=== PATIENT | male | born 1940 | race Caucasian/White ===

== ENCOUNTER → 2016-11-07 | Outpatient (CLI) | payer MEDICARE, OTHER ==
[2016-11-07 12:27] LABS: HEMATOCRIT 38.8 % (37.9-51.0); HGB HCT DIFFERENCE 0.2; MEAN CORPUSCULAR HEMOGLOBIN 28.8 pg (27.0-33.4); MEAN CORPUSCULAR HGB CONC 33.5 g/dL (32.0-36.0); MEAN CORPUSCULAR VOLUME 86 fl (80-97); RED BLOOD COUNT 4.52 10^6/uL (4.35-5.55); RED CELL DISTRIBUTION WIDTH 14.4 % (11.5-14.0); WHITE BLOOD COUNT 10.6 10^3/uL (4.0-10.5)
[2016-11-07 12:54] LABS: ANION GAP 16 (5-19); BLOOD UREA NITROGEN 57 mg/dL (7-20); CALCIUM 10.1 mg/dL (8.4-10.2); CARBON DIOXIDE 23 mmol/L (22-30); CHLORIDE 104 mmol/L (98-107); CREATININE RESULT 1.89 mg/dL (0.52-1.25); GLUCOSE 92 mg/dL (75-110); POTASSIUM 3.7 mmol/L (3.6-5.0); SODIUM 143.3 mmol/L (137-145)
[2016-11-07 16:01] LABS: AMORPHOUS SEDIMENT,URINE TRACE /HPF; APPEARANCE,URINE SLIGHTLY-CLOUDY; BILIRUBIN,URINE NEGATIVE (NEGATIVE); GLUCOSE, URINE NEGATIVE (NEGATIVE); KETONES,URINE NEGATIVE (NEGATIVE); LEUKOCYTE ESTERASE,URINE LARGE (NEGATIVE); NITRITE,URINE NEGATIVE (NEGATIVE); PROTEIN,URINE NEGATIVE (NEGATIVE); URINE SPECIFIC GRAVITY 1.016; UROBILINOGEN,URINE NEGATIVE mg/dL (<2.0)
== END ==
LOC: OD 10:46
PROVIDERS: ATTEND Internal Medicine Nephrology
DX: I12.9 Hypertensive chronic kidney disease with stage 1 through stage 4 chronic kidney disease, or unspecified chronic kidney disease (principal); N18.3 Chronic kidney disease, stage 3 (moderate); N39.0 Urinary tract infection, site not specified; E87.5 Hyperkalemia
CPT/HCPCS: 36415; 80048; 81001; 85027; 87086; 87088; 87186

== ENCOUNTER → 2017-03-27 | Outpatient (CLI) | payer MEDICARE, OTHER ==
[2017-03-27 11:56] LABS: HEMOGLOBIN 12.1 g/dL (13.5-17.0); HGB HCT DIFFERENCE 0.3; MEAN CORPUSCULAR HEMOGLOBIN 28.9 pg (27.0-33.4); MEAN CORPUSCULAR HGB CONC 33.5 g/dL (32.0-36.0); MEAN CORPUSCULAR VOLUME 86 fl (80-97); RED BLOOD COUNT 4.18 10^6/uL (4.35-5.55); RED CELL DISTRIBUTION WIDTH 14.1 % (11.5-14.0); WHITE BLOOD COUNT 9.3 10^3/uL (4.0-10.5)
[2017-03-27 12:12] LABS: APPEARANCE,URINE CLOUDY; BILIRUBIN,URINE NEGATIVE (NEGATIVE); GLUCOSE, URINE NEGATIVE (NEGATIVE); KETONES,URINE NEGATIVE (NEGATIVE); LEUKOCYTE ESTERASE,URINE LARGE (NEGATIVE); NITRITE,URINE NEGATIVE (NEGATIVE); PROTEIN,URINE 100 mg/dL (NEGATIVE); URINE SPECIFIC GRAVITY 1.015; UROBILINOGEN,URINE NEGATIVE mg/dL (<2.0)
[2017-03-27 12:18] LABS: ANION GAP 13 (5-19); BLOOD UREA NITROGEN 30 mg/dL (7-20); CALCIUM 9.2 mg/dL (8.4-10.2); CARBON DIOXIDE 24 mmol/L (22-30); CHLORIDE 104 mmol/L (98-107); CREATININE RESULT 1.63 mg/dL (0.52-1.25); GLUCOSE 93 mg/dL (75-110); MAGNESIUM 1.9 mg/dL (1.6-2.3); SODIUM 140.5 mmol/L (137-145)
== END ==
LOC: OD 11:05
PROVIDERS: ATTEND Internal Medicine Nephrology
DX: E11.22 Type 2 diabetes mellitus with diabetic chronic kidney disease (principal); N18.3 Chronic kidney disease, stage 3 (moderate); N39.0 Urinary tract infection, site not specified; R80.9 Proteinuria, unspecified
CPT/HCPCS: 36415; 80048; 81001; 83735; 85027

== ENCOUNTER → 2017-09-17 | Outpatient (CLI) | payer MEDICARE, OTHER ==
[2017-09-17 11:29] LABS: HEMATOCRIT 35.1 % (37.9-51.0); HEMOGLOBIN 12.2 g/dL (13.5-17.0); HGB HCT DIFFERENCE 1.5; MEAN CORPUSCULAR HEMOGLOBIN 29.4 pg (27.0-33.4); MEAN CORPUSCULAR HGB CONC 34.6 g/dL (32.0-36.0); MEAN CORPUSCULAR VOLUME 85 fl (80-97); RED BLOOD COUNT 4.14 10^6/uL (4.35-5.55); RED CELL DISTRIBUTION WIDTH 14.1 % (11.5-14.0)
[2017-09-17 11:36] LABS: APPEARANCE,URINE SLIGHTLY-CLOUDY; BILIRUBIN,URINE NEGATIVE (NEGATIVE); GLUCOSE, URINE NEGATIVE (NEGATIVE); KETONES,URINE NEGATIVE (NEGATIVE); LEUKOCYTE ESTERASE,URINE SMALL (NEGATIVE); NITRITE,URINE NEGATIVE (NEGATIVE); PROTEIN,URINE 100 mg/dL (NEGATIVE); URINE SPECIFIC GRAVITY 1.018; UROBILINOGEN,URINE NEGATIVE mg/dL (<2.0)
[2017-09-17 11:55] LABS: ALANINE AMINOTRANSFERASE 35 U/L (21-72); ALKALINE PHOSPHATASE 78 U/L (38-126); ANION GAP 14 (5-19); ASPARTATE AMINO TRANSFERASE 24 U/L (17-59); BILIRUBIN,DIRECT 0.4 mg/dL (0.0-0.4); BILIRUBIN,TOTAL 0.4 mg/dL (0.2-1.3); BLOOD UREA NITROGEN 26 mg/dL (7-20); CALCIUM 9.3 mg/dL (8.4-10.2); CARBON DIOXIDE 23 mmol/L (22-30); CHLORIDE 106 mmol/L (98-107); CREATININE RESULT 1.64 mg/dL (0.52-1.25); GLUCOSE 108 mg/dL (75-110); POTASSIUM 3.7 mmol/L (3.6-5.0); SODIUM 143.4 mmol/L (137-145); TOTAL PROTEIN 7.5 g/dL (6.3-8.2)
== END ==
LOC: OD 10:18
PROVIDERS: ATTEND Internal Medicine
DX: N18.3 Chronic kidney disease, stage 3 (moderate) (principal); E11.22 Type 2 diabetes mellitus with diabetic chronic kidney disease; E87.5 Hyperkalemia; I12.9 Hypertensive chronic kidney disease with stage 1 through stage 4 chronic kidney disease, or unspecified chronic kidney disease
CPT/HCPCS: 36415; 80053; 81001; 83036; 85027

== ENCOUNTER → 2018-02-08 | Outpatient (CLI) | payer MEDICARE, OTHER ==
[2018-02-08 10:47] LABS: HEMATOCRIT 38.5 % (37.9-51.0); HEMOGLOBIN 12.9 g/dL (13.5-17.0); MEAN CORPUSCULAR HEMOGLOBIN 28.2 pg (27.0-33.4); MEAN CORPUSCULAR HGB CONC 33.5 g/dL (32.0-36.0); MEAN CORPUSCULAR VOLUME 84 fl (80-97); PLATELET COUNT 281 10^3/uL (150-450); RED BLOOD COUNT 4.57 10^6/uL (4.35-5.55); RED CELL DISTRIBUTION WIDTH 14.9 % (11.5-14.0); WHITE BLOOD COUNT 9.6 10^3/uL (4.0-10.5)
[2018-02-08 11:05] LABS: AMORPHOUS SEDIMENT,URINE TRACE /HPF; APPEARANCE,URINE CLOUDY; BILIRUBIN,URINE NEGATIVE (NEGATIVE); COLOR,URINE YELLOW; GLUCOSE, URINE NEGATIVE (NEGATIVE); KETONES,URINE NEGATIVE (NEGATIVE); LEUKOCYTE ESTERASE,URINE LARGE (NEGATIVE); NITRITE,URINE POSITIVE (NEGATIVE); PROTEIN,URINE 100 mg/dL (NEGATIVE); UR PRO/CREAT RATIO RESULT 0.9 mg/mg (0.0-0.2); URINE CREATININE 123.6 mg/dL (22-328); URINE PROTEIN 107.3 mg/dL (<12); URINE SPECIFIC GRAVITY 1.017; UROBILINOGEN,URINE NEGATIVE mg/dL (<2.0)
[2018-02-08 11:10] LABS: ANION GAP 18 (5-19); BLOOD UREA NITROGEN 40 mg/dL (7-20); CALCIUM 9.8 mg/dL (8.4-10.2); CARBON DIOXIDE 23 mmol/L (22-30); CHLORIDE 105 mmol/L (98-107); GLUCOSE 115 mg/dL (75-110); POTASSIUM 3.8 mmol/L (3.6-5.0); SODIUM 145.8 mmol/L (137-145)
== END ==
LOC: OD 09:56
PROVIDERS: ATTEND Internal Medicine Nephrology
DX: N18.3 Chronic kidney disease, stage 3 (moderate) (principal); E87.5 Hyperkalemia; R80.9 Proteinuria, unspecified
CPT/HCPCS: 36415; 80048; 81001; 82570; 84156; 85027

== ENCOUNTER → 2018-08-19 | Outpatient (CLI) | payer MEDICARE, OTHER ==
[2018-08-19 15:56] LABS: HEMATOCRIT 37.5 % (37.9-51.0); HEMOGLOBIN 12.6 g/dL (13.5-17.0); MEAN CORPUSCULAR HEMOGLOBIN 29.2 pg (27.0-33.4); MEAN CORPUSCULAR HGB CONC 33.5 g/dL (32.0-36.0); MEAN CORPUSCULAR VOLUME 87 fl (80-97); PLATELET COUNT 280 10^3/uL (150-450); RED BLOOD COUNT 4.32 10^6/uL (4.35-5.55); RED CELL DISTRIBUTION WIDTH 13.6 % (11.5-14.0); WHITE BLOOD COUNT 7.9 10^3/uL (4.0-10.5)
[2018-08-19 15:58] LABS: AMORPHOUS SEDIMENT,URINE TRACE /HPF; APPEARANCE,URINE CLOUDY; BILIRUBIN,URINE NEGATIVE (NEGATIVE); COLOR,URINE YELLOW; GLUCOSE, URINE 50 mg/dL (NEGATIVE); KETONES,URINE NEGATIVE (NEGATIVE); LEUKOCYTE ESTERASE,URINE LARGE (NEGATIVE); NITRITE,URINE NEGATIVE (NEGATIVE); PROTEIN,URINE 100 mg/dL (NEGATIVE); URINE SPECIFIC GRAVITY 1.014; UROBILINOGEN,URINE NEGATIVE mg/dL (<2.0)
[2018-08-19 16:10] LABS: ANION GAP 12 (5-19); BLOOD UREA NITROGEN 28 mg/dL (7-20); CALCIUM 9.5 mg/dL (8.4-10.2); CARBON DIOXIDE 24 mmol/L (22-30); CHLORIDE 103 mmol/L (98-107); GLUCOSE 139 mg/dL (75-110); POTASSIUM 4.2 mmol/L (3.6-5.0); SODIUM 139.1 mmol/L (137-145)
== END ==
LOC: OD 14:30
PROVIDERS: ATTEND Internal Medicine Nephrology
DX: I12.9 Hypertensive chronic kidney disease with stage 1 through stage 4 chronic kidney disease, or unspecified chronic kidney disease (principal); E11.22 Type 2 diabetes mellitus with diabetic chronic kidney disease; N18.3 Chronic kidney disease, stage 3 (moderate); E87.5 Hyperkalemia
CPT/HCPCS: 36415; 80048; 81001; 85027

== ENCOUNTER 2018-12-04 07:20 | Day surgery (SDC) | payer MEDICARE, OTHER ==
[~2018-12-04 07:20] MED LIST: KETOROLAC TROMETHAMINE 0.45% 4 DROP/0.4 ML DROPERETTE OS PRN; MIDAZOLAM 2 MG/2 ML INJ ONE
[2018-12-04] MEDS: CYCLOPENTOLATE 0.2%/PHENYLEPHRINE 1% OPH SOLN 2 ML OS PRN ×3 (07:44→08:04)
[2018-12-04] MEDS: TROPICAMIDE 1% OPH SOLN 3 ML OS PRN ×3 (07:44→08:04)
[2018-12-04] MEDS: TETRACAINE HCL 0.5% OPH SOLN 0.6 ML DROPERETTE OS PRN ×3 (07:44→08:18)
[2018-12-04] MEDS ORDERED: EPINEPHRINE INJ/PF 1 MG/1 ML AMPULE ONE (07:58)
[2018-12-04] MEDS ORDERED: LIDOCAINE 1% INJ-PF (10 MG/ML) 30 ML SDV ONE (07:58)
[2018-12-04] MEDS ORDERED: CHONDR SU A NA/HYALUR INTRAOC KIT (SURGICARE) ONE (07:58)
[2018-12-04] MEDS: TOBRAMYCIN SULFATE/DEXAMETH OPH OINTMENT 3.5 GM ONE ×2 (08:45)
[2018-12-04] MEDS: BESIFLOXACIN HCL 0.6% OPH SUSP 5 ML BOTTLE OS PRN ×2 (08:45)
== END 2018-12-04 09:18 | disposition home or self-care (01) ==
LOC: SC 07:20
PROVIDERS: ATTEND Ophthalmology
DX: H25.12 Age-related nuclear cataract, left eye (principal); E11.9 Type 2 diabetes mellitus without complications; N40.0 Benign prostatic hyperplasia without lower urinary tract symptoms; Z79.899 Other long term (current) drug therapy; Z79.891 Long term (current) use of opiate analgesic; Z87.891 Personal history of nicotine dependence; Z88.1 Allergy status to other antibiotic agents
CPT/HCPCS: 66984; 82962; V2630; J2250; J3490 ×3; A9270; J0171; 142

== ENCOUNTER 2018-12-18 08:23 | Day surgery (SDC) | payer MEDICARE, OTHER ==
[~2018-12-18 08:23] MED LIST changes: +CHONDR SU A NA/HYALUR INTRAOC KIT (SURGICARE) ONE; +EPINEPHRINE INJ/PF 1 MG/1 ML AMPULE ONE; +KETOROLAC TROMETHAMINE 0.45% 4 DROP/0.4 ML DROPERETTE OD PRN; -KETOROLAC TROMETHAMINE 0.45% 4 DROP/0.4 ML DROPERETTE OS PRN; +LIDOCAINE 1%/PHENYLEPHRINE 1.5% 1 ML VIAL ONE
[2018-12-18] MEDS: TETRACAINE HCL 0.5% OPH SOLN 0.6 ML DROPERETTE OD PRN ×3 (09:35→10:10)
[2018-12-18] MEDS: BESIFLOXACIN HCL 0.6% OPH SUSP 5 ML BOTTLE OD PRN ×4 (09:36→10:34)
[2018-12-18] MEDS: CYCLOPENTOLATE 0.2%/PHENYLEPHRINE 1% OPH SOLN 2 ML OD PRN ×3 (09:36→10:00)
[2018-12-18] MEDS: TROPICAMIDE 1% OPH SOLN 3 ML OD PRN ×3 (09:36→10:00)
[2018-12-18] MEDS: TOBRAMYCIN SULFATE/DEXAMETH OPH OINTMENT 3.5 GM ONE ×2 (10:22→10:34)
== END 2018-12-18 11:14 | disposition home or self-care (01) ==
LOC: SC 08:23
PROVIDERS: ATTEND Ophthalmology
DX: H25.11 Age-related nuclear cataract, right eye (principal); Z98.42 Cataract extraction status, left eye; E78.00 Pure hypercholesterolemia, unspecified; N40.0 Benign prostatic hyperplasia without lower urinary tract symptoms; E11.9 Type 2 diabetes mellitus without complications; Z79.899 Other long term (current) drug therapy; Z79.891 Long term (current) use of opiate analgesic; Z88.1 Allergy status to other antibiotic agents; Z87.891 Personal history of nicotine dependence
CPT/HCPCS: 66984; 82962; V2630; J2250; J3490 ×2; A9270; J0171; J2370; 142

== ENCOUNTER → 2019-02-20 | Outpatient (CLI) | payer MEDICARE, OTHER ==
[2019-02-20 10:26] LABS: HEMATOCRIT 36.4 % (37.9-51.0); HEMOGLOBIN 12.3 g/dL (13.5-17.0); MEAN CORPUSCULAR HEMOGLOBIN 29.2 pg (27.0-33.4); MEAN CORPUSCULAR HGB CONC 33.8 g/dL (32.0-36.0); MEAN CORPUSCULAR VOLUME 86 fl (80-97); PLATELET COUNT 246 10^3/uL (150-450); RED BLOOD COUNT 4.22 10^6/uL (4.35-5.55); RED CELL DISTRIBUTION WIDTH 15.3 % (11.5-14.0); WHITE BLOOD COUNT 8.9 10^3/uL (4.0-10.5)
[2019-02-20 10:33] LABS: AMORPHOUS SEDIMENT,URINE TRACE /HPF; APPEARANCE,URINE CLOUDY; BILIRUBIN,URINE NEGATIVE (NEGATIVE); COLOR,URINE YELLOW; GLUCOSE, URINE 50 mg/dL (NEGATIVE); KETONES,URINE NEGATIVE (NEGATIVE); LEUKOCYTE ESTERASE,URINE LARGE (NEGATIVE); NITRITE,URINE POSITIVE (NEGATIVE); PROTEIN,URINE 100 mg/dL (NEGATIVE); URINE SPECIFIC GRAVITY 1.016; UROBILINOGEN,URINE NEGATIVE mg/dL (<2.0)
[2019-02-20 10:58] LABS: ANION GAP 10 (5-19); BLOOD UREA NITROGEN 45 mg/dL (7-20); CALCIUM 9.6 mg/dL (8.4-10.2); CARBON DIOXIDE 27 mmol/L (22-30); CHLORIDE 101 mmol/L (98-107); GLUCOSE 189 mg/dL (75-110); POTASSIUM 4.5 mmol/L (3.6-5.0); SODIUM 137.8 mmol/L (137-145)
== END ==
LOC: OD 09:15
PROVIDERS: ATTEND Internal Medicine Nephrology
DX: E11.22 Type 2 diabetes mellitus with diabetic chronic kidney disease (principal); I12.9 Hypertensive chronic kidney disease with stage 1 through stage 4 chronic kidney disease, or unspecified chronic kidney disease; N18.3 Chronic kidney disease, stage 3 (moderate); R80.9 Proteinuria, unspecified
CPT/HCPCS: 36415; 80048; 81001; 85027

== ENCOUNTER → 2019-03-28 | Outpatient (CLI) | payer MEDICARE, OTHER ==
[2019-03-28 08:36] LABS: HEMATOCRIT 37.2 % (37.9-51.0); HEMOGLOBIN 12.4 g/dL (13.5-17.0); MEAN CORPUSCULAR HGB CONC 33.2 g/dL (32.0-36.0); MEAN CORPUSCULAR VOLUME 87 fl (80-97); PLATELET COUNT 283 10^3/uL (150-450); RED BLOOD COUNT 4.26 10^6/uL (4.35-5.55); RED CELL DISTRIBUTION WIDTH 14.7 % (11.5-14.0); WHITE BLOOD COUNT 9.2 10^3/uL (4.0-10.5)
[2019-03-28 09:00] LABS: ANION GAP 13 (5-19); BLOOD UREA NITROGEN 37 mg/dL (7-20); CALCIUM 9.7 mg/dL (8.4-10.2); CARBON DIOXIDE 25 mmol/L (22-30); CHLORIDE 102 mmol/L (98-107); GLUCOSE 132 mg/dL (75-110); PHOSPHORUS 3.7 mg/dL (2.5-4.5); POTASSIUM 4.4 mmol/L (3.6-5.0); SODIUM 140.1 mmol/L (137-145)
== END ==
LOC: OD 07:22
PROVIDERS: ATTEND Internal Medicine Nephrology
DX: I12.9 Hypertensive chronic kidney disease with stage 1 through stage 4 chronic kidney disease, or unspecified chronic kidney disease (principal); N18.3 Chronic kidney disease, stage 3 (moderate); E11.22 Type 2 diabetes mellitus with diabetic chronic kidney disease; R80.9 Proteinuria, unspecified
CPT/HCPCS: 36415; 80048; 82533; 83735; 83970; 84100; 85027

== ENCOUNTER 2019-06-20 14:29 | Inpatient (IN) | payer MEDICARE, OTHER ==
--- NOTE | 2019-06-20 15:21 | ER Document Report ---
ED General - General Chief Complaint: Nausea Stated Complaint: POSSIBLE LOW BLOOD PRESSURE Time Seen by Provider: 06/20/19 15:03 Notes: Patient is a 78-year-old male with history of COPD, obstructive sleep apnea, diabetes and chronic kidney disease that presents to the emergency department for chief complaint of altered mental status. reports that he is apparently woke up from a nap was in his electric chair, and started shaking repeatedly, and seemed confused, it seemed to pause briefly, and then reoccurred, this is concerning for her that he was altered so they brought him to the emergency department by EMS. At this time, the patient seems to be alert and oriented, but apparently was not for EMS. He denies having any pain at this time, denies any nausea, vomiting, abdominal pain, chest pain or shortness of breath. He does not wear oxygen at home, but was supposed to have a sleep study tonight. Past Medical History: Diabetes mellitus, chronic kidney disease, bladder incontinence, obstructive sleep apnea, COPD, osteoarthritis Past Surgical History: Cervical spine surgery, cholecystectomy, lap band Social History: Former smoker, denies alcohol or drug use. Family History: Reviewed and noncontributory for presenting illness Allergies: Reviewed, see documented allergy list. REVIEW OF SYSTEMS: Other than noted above, the 12 point review of systems was reviewed with the patient and were negative, all pertinent findings are included in the HPI. PHYSICAL EXAMINATION: Vital signs reviewed, nursing noted reviewed. GENERAL: Morbidly obese, elderly male, no acute distress HEAD: Atraumatic, normocephalic. EYES: Eyes appear normal, extraocular movements intact, sclera anicteric, conjunctiva are normal. ENT: nares patent, oropharynx clear without exudates. Moist mucous membranes. NECK: Normal range of motion, supple without lymphadenopathy LUNGS: There are crackles noted at the left lung base, compared to the right, upper car[place] are clear, no acute respiratory distress. HEART: Heart rate borderline bradycardic, regular rhythm. No audible murmur. ABDOMEN: Soft, obese, nontender, normoactive bowel sounds. No rebound, guarding, or rigidity. No masses appreciated. EXTREMITIES: Nontender, good range of motion, 3+ pitting edema to the ankles bilaterally. Chronic stasis changes noted to the lower extremities bilaterally. NEUROLOGICAL: No focal neurological deficits. Moves all extremities spont aneously Motor and sensory grossly intact on exam. PSYCH: Normal mood, normal affect. SKIN: Warm, Dry, normal turgor TRAVEL OUTSIDE OF THE [place] IN LAST 30 DAYS: No - Related Data Allergies/Adverse Reactions: ciprofloxacin [From Cipro] Allergy (Unknown, Verified 12/04/18 07:54) RASH levofloxacin [From Levaquin] Allergy (Verified 12/04/18 07:54) RASH Quinolones Allergy (Verified 12/04/18 07:54) RASH Past Medical History - Social History Smoking Status: Former Smoker Family History: Reviewed & Not Pertinent - Past Medical History Cardiac Medical History: Denies: Hx Heart Attack, Hx Hypertension Pulmonary Medical History: Denies: Hx Asthma Neurological Medical History: Denies: Hx Cerebrovascular Accident, Hx Seizures Endocrine Medical History: Reports: Hx Diabetes Mellitus Type 2 Renal/ Medical History: Reports: Hx Kidney Stones. Denies: Hx End Stage Renal Disease - chronic kidney disease GI Medical History: Denies: Hx Hepatitis, Hx Hiatal Hernia, Hx Ulcer Infectious Medical History: Denies: Hx Hepatitis Past Surgical History: Reports: Hx Abdominal Surgery - Lap Band, Hx Cholecystectomy, Hx Orthopedic Surgery. Denies: Hx Open Heart Surgery, Hx Pacemaker - Immunizations Hx Diphtheria, Pertussis, Tetanus Vaccination: No Hx Pneumococcal Vaccination: 08/02/12 Physical Exam - Vital signs Vitals: Temp BP Pulse Ox 98.9 F 153/140 H 86 L 06/20/19 14:34 06/20/19 14:34 06/20/19 14:34 Course - Re-evaluation Re-evalutation: Patient seen and examined vital signs reviewed. Laboratory data and imaging were ordered as appropriate for the patient's presenting symptoms and complaint, with consideration of any critical or life threatening conditions that may be associated with their obtained history and exam as noted above. Patient was treated with supplemental oxygen and ultimately BiPAP therapy Results were reviewed when available and demonstrated ABG that was consistent with acute on chronic respiratory failure, likely hypoventilation syndrome, with acute respiratory acidosis. Patient was hypoxic, upon arrival in the low 80s, was initially given submental oxygen, but after ABG was demonstrating elevated CO2, and the patient initially presented altered, is likely that he is having CO2 retention, causing his altered mental status in addition to the hypoxia. CT of his head was negative, his blood work was consistent with his baseline, chest x-ray is not convincing of acute infiltrative process, there is a possible atelectasis in the left CVA, but less convinced of pneumonia. The patient was re-evaluated and was improved on BiPAP, was more alert and answering questions appropriately. Evaluation was most consistent with acute on chronic respiratory failure Results were discussed with the patient at this point after careful consideration I feel that that patient should be admitted to the hospital. This was discussed with the patient that it is in the best interest for their care to be admitted for further evaluation and management. Patient agreed with this plan of care. A call was placed to the admitting physician, [] who graciously accepted the patient onto their service. *Note is created using voice recognition software and may contain spelling, syntax or grammatical errors. Laboratory 06/20/19 06/20/19 06/20/19 14:34 14:44 14:44 WBC 6.5 RBC 4.01 L Hgb 11.8 L Hct 35.8 L MCV 90 MCH 29.3 MCHC 32.8 RDW 15.3 H Plt Count 279 Lymph % (Auto) 15.9 [place] % (Auto) 8.2 Eos % (Auto) 5.6 Baso % (Auto) 0.7 Absolute Neuts (auto) 4.5 Absolute Lymphs (auto) 1.0 Absolute Monos (auto) 0.5 Absolute Eos (auto) 0.4 Absolute Basos (auto) 0.0 Seg Neutrophils % 69.6 Carbonic Acid HCO3/H2CO3 Ratio ABG pH ABG pCO2 ABG pO2 ABG HCO3 ABG Total CO2 ABG O2 Saturation ABG Base Excess FiO2 Sodium 139.4 Potassium 3.5 L Chloride 101 Carbon Dioxide 27 Anion Gap 11 BUN 50 H Creatinine 2.19 H Est GFR ( Amer) 35 L Est GFR (MDRD) Non-Af 29 L Glucose 100 POC Glucose 94 Calcium 9.3 Total Bilirubin 0.5 Direct Bilirubin 0.5 H Neonat Total Bilirubin Not Reportable Neonat Direct Bilirubin Not Reportable Neonat Indirect Bili Not Reportable AST 51 ALT 21 Alkaline Phosphatase 63 Troponin I NT-Pro-B Natriuret Pep Total Protein 7.3 Albumin 3.8 Urine Color Urine Appearance Urine pH Ur Specific [place] Urine Protein Urine Glucose (UA) Urine Ketones Urine Blood Urine Nitrite Urine Bilirubin Urine Urobilinogen Ur Leukocyte Esterase Urine WBC (Auto) Urine RBC (Auto) U Hyaline Cast (Auto) Urine Bacteria (Auto) Squamous Epi Cells Auto Amorphous Sediment Auto Urine Mucus (Auto) Urine Ascorbic Acid 06/20/19 06/20/19 06/20/19 14:44 16:06 16:06 WBC RBC Hgb Hct MCV MCH MCHC RDW Plt Count Lymph % (Auto) [place] % (Auto) Eos % (Auto) Baso % (Auto) Absolute Neuts (auto) Absolute Lymphs (auto) Absolute Monos (auto) Absolute Eos (auto) Absolute Basos (auto) Seg Neutrophils % Carbonic Acid 1.80 H HCO3/H2CO3 Ratio 15:1 ABG pH 7.28 L ABG pCO2 59.9 H ABG pO2 78.4 L ABG HCO3 27.6 H ABG Total CO2 29.5 H ABG O2 Saturation 93.8 L ABG Base Excess -0.1 FiO2 4 Sodium Potassium Chloride Carbon Dioxide Anion Gap BUN Creatinine Est GFR ( Amer) Est GFR (MDRD) Non-Af Glucose POC Glucose Calcium Total Bilirubin Direct Bilirubin Neonat Total Bilirubin Neonat Direct Bilirubin Neonat Indirect Bili AST ALT Alkaline Phosphatase Troponin I < 0.012 NT-Pro-B Natriuret Pep 98 Total Protein Albumin Urine Color YELLOW Urine Appearance CLEAR Urine pH 5.0 Ur Specific [place] 1.020 Urine Protein 100 H Urine Glucose (UA) NEGATIVE Urine Ketones NEGATIVE Urine Blood NEGATIVE Urine Nitrite NEGATIVE Urine Bilirubin NEGATIVE Urine Urobilinogen NEGATIVE Ur Leukocyte Esterase NEGATIVE Urine WBC (Auto) 3 Urine RBC (Auto) 3 U Hyaline Cast (Auto) 143 Urine Bacteria (Auto) TRACE Squamous Epi Cells Auto <1 Amorphous Sediment Auto TRACE Urine Mucus (Auto) RARE Urine Ascorbic Acid NEGATIVE Chest X-Ray 06/20/19 00:00 IMPRESSION: Probable atelectasis in the left costophrenic angle. No other significant findings. Head CT 06/20/19 15:20 IMPRESSION: NO ACUTE INTRACRANIAL FINDINGS. EVIDENCE OF ACUTE STROKE: NO. - Vital Signs Vital signs: Temp Pulse Resp BP Pulse Ox 98.9 F 13 118/68 96 06/20/19 14:34 06/20/19 16:58 06/20/19 15:01 06/20/19 16:58 - Laboratory Result Diagrams: 06/20/19 14:44 06/20/19 14:44 Laboratory results interpreted by me: 06/20/19 06/20/19 06/20/19 14:44 14:44 16:06 RBC 4.01 L Hgb 11.8 L Hct 35.8 L RDW 15.3 H Carbonic Acid 1.80 H ABG pH 7.28 L ABG pCO2 59.9 H ABG pO2 78.4 L ABG HCO3 27.6 H ABG Total CO2 29.5 H ABG O2 Saturation 93.8 L Potassium 3.5 L BUN 50 H Creatinine 2.19 H Est GFR ( Amer) 35 L Est GFR (MDRD) Non-Af 29 L Direct Bilirubin 0.5 H Urine Protein 06/20/19 16:06 RBC Hgb Hct RDW Carbonic Acid ABG pH ABG pCO2 ABG pO2 ABG HCO3 ABG Total CO2 ABG O2 Saturation Potassium BUN Creatinine Est GFR ( Amer) Est GFR (MDRD) Non-Af Direct Bilirubin Urine Protein 100 H - EKG Interpretation by Me Additional EKG results interpreted by me: EKG demonstrates sinus rhythm with a ventricular rate of 65 bpm, left axis deviation, QTC 483 ms, baseline artifact noted, slight T wave inversion in aVL and V2, no ST elevation, compared to prior EKG from 08/04/2015. Critical Care Note - Critical Care Note Total time excluding time spent on procedures (mins): 36 Comments: Critical care time 36 minutes exclusive from separate billable procedures for a patient requiring complex medical decision making, and high potential for clinical deterioration. In a patient with acute on chronic respiratory failure, requiring noninvasive positive pressure ventilation, to correct his hypercapnia and hypoxia.. Time spent obtaining history from patient or surrogate, discussions with consultants, development of treatment plan with patient or surrogate, evaluation of patient's response to treatment, examination of patient, ordering and performing treatments and interventions, ordering and review of laboratory studies, re-evaluation of patient's condition, ordering and review of radiographic studies and review of old charts Discharge - Discharge Clinical Impression: Acute and chronic respiratory failure with hypoxia, Acute respiratory acidosis, Acute metabolic encephalopathy Condition: Serious Disposition: ADMITTED INPATIENT Admitting Provider: Caren (Hospitalist) Unit Admitted: [facility]
[2019-06-20 15:42] LABS: ABSOLUTE EOSINOPHILS # (AUTO) 0.4 10^3/uL (0.0-0.6); ABSOLUTE MONOCYTES (AUTO) 0.5 10^3/uL (0.1-1.4); ABSOLUTE NEUT (AUTO) 4.5 10^3/uL (1.7-8.2); BASOPHILS % (AUTO) 0.7 % (0-2); EOSINOPHILS % (AUTO) 5.6 % (0-6); HEMATOCRIT 35.8 % (37.9-51.0); HEMOGLOBIN 11.8 g/dL (13.5-17.0); LYMPHOCYTES % (AUTO) 15.9 % (13-45); MEAN CORPUSCULAR HEMOGLOBIN 29.3 pg (27.0-33.4); MEAN CORPUSCULAR HGB CONC 32.8 g/dL (32.0-36.0); MEAN CORPUSCULAR VOLUME 90 fl (80-97); MONOCYTES % (AUTO) 8.2 % (3-13); PLATELET COUNT 279 10^3/uL (150-450); RED BLOOD COUNT 4.01 10^6/uL (4.35-5.55); RED CELL DISTRIBUTION WIDTH 15.3 % (11.5-14.0); SEGMENTED NEUTROPHILS % (AUTO) 69.6 % (42-78); TOTAL CELLS COUNTED % (AUTO) 100 %; WHITE BLOOD COUNT 6.5 10^3/uL (4.0-10.5)
[2019-06-20 15:49] LABS: ALBUMIN 3.8 g/dL (3.5-5.0); ALKALINE PHOSPHATASE 63 U/L (38-126); ANION GAP 11 (5-19); ASPARTATE AMINO TRANSFERASE 51 U/L (17-59); BILIRUBIN,DIRECT 0.5 mg/dL (0.0-0.4); BILIRUBIN,TOTAL 0.5 mg/dL (0.2-1.3); BLOOD UREA NITROGEN 50 mg/dL (7-20); CALCIUM 9.3 mg/dL (8.4-10.2); CARBON DIOXIDE 27 mmol/L (22-30); CHLORIDE 101 mmol/L (98-107); GLUCOSE 100 mg/dL (75-110); POTASSIUM 3.5 mmol/L (3.6-5.0); TOTAL PROTEIN 7.3 g/dL (6.3-8.2)
[2019-06-20 15:59] LABS: NT PRO BNP 98 pg/mL (<450)
[2019-06-20 16:07] LABS: TROPONIN I < 0.012 ng/mL
--- NOTE | 2019-06-20 16:28 | RADIOLOGY REPORT (SQ) ---
EXAM DESCRIPTION: CHEST SINGLE VIEW COMPLETED DATE/TIME: 06/20/2019 4:20 pm REASON FOR STUDY: SOB COMPARISON: None. NUMBER OF VIEWS: One view. TECHNIQUE: Single frontal radiographic view of the chest acquired. LIMITATIONS: None. FINDINGS: LUNGS AND PLEURA: There is asymmetric opacity in the left costophrenic angle most likely a telectasis. Possibly pleural thickening. No consolidation. No pneumothorax. MEDIASTINUM AND HILAR STRUCTURES: No masses. Contour normal. HEART AND VASCULAR STRUCTURES: Heart normal in size. Normal vasculature. BONES: No acute findings. HARDWARE: None in the chest. OTHER: No other significant finding. IMPRESSION: Probable atelectasis in the left costophrenic angle. No other significant findings. TECHNICAL DOCUMENTATION: JOB ID: [id number] [employer]- All Rights Reserved Reading location - IP/workstation name: [email or web address]
[2019-06-20 16:31] LABS: ARTERIAL BLOOD BASE EXCESS -0.1 mmol/L; ARTERIAL BLOOD HCO3 27.6 mmol/L (20-24); ARTERIAL BLOOD O2 SATURATION 93.8 % (94-98); ARTERIAL BLOOD PCO2 59.9 mmHg (35-45); ARTERIAL BLOOD PH 7.28 (7.35-7.45); ARTERIAL BLOOD PO2 78.4 mmHg (80-100); ARTERIAL BLOOD TOTAL CO2 29.5 mmol/L (23-27)
[2019-06-20 16:32] LABS: ARTERIAL BLOOD FIO2 4
[2019-06-20 16:44] LABS: AMORPHOUS SEDIMENT,URINE TRACE /HPF; APPEARANCE,URINE CLEAR; BILIRUBIN,URINE NEGATIVE (NEGATIVE); COLOR,URINE YELLOW; GLUCOSE, URINE NEGATIVE (NEGATIVE); KETONES,URINE NEGATIVE (NEGATIVE); LEUKOCYTE ESTERASE,URINE NEGATIVE (NEGATIVE); NITRITE,URINE NEGATIVE (NEGATIVE); PROTEIN,URINE 100 mg/dL (NEGATIVE); UROBILINOGEN,URINE NEGATIVE mg/dL (<2.0)
[2019-06-20] MEDS ORDERED: ACETAMINOPHEN 325 MG TABLET PO PRN (17:49)
[2019-06-20] MEDS ORDERED: ONDANSETRON HCL INJ/PF 4 MG/2 ML SDV IV PRN (17:49)
--- NOTE | 2019-06-20 17:56 | RADIOLOGY REPORT (SQ) ---
EXAM DESCRIPTION: CT HEAD WITHOUT COMPLETED DATE/TIME: 06/20/2019 5:35 pm REASON FOR STUDY: altered mental status COMPARISON: None. TECHNIQUE: Axial images acquired through the brain without intravenous contrast. Images reviewed wit h bone, brain and subdural windows. Images stored on PACS. All CT scanners at this facility use dose modulation, iterative reconstruction, and/or weight based d osing when appropriate to reduce radiation dose to as low as reasonably achievable (ALARA). [facility]: Dose Right [facility]: CareDose [facility]: Dose Right [facility]: Teradose 4D [facility]: Smart [employer] RADIATION DOSE: CT Rad equipment meets quality standard of care and radiation dose reduction techniq ues were employed. CTDIvol: 48.7 mGy. DLP: 979 mGy-cm.. LIMITATIONS: None. FINDINGS: VENTRICLES: Normal size and contour. CEREBRUM: No masses. No hemorrhage. No midline shift. Age appropriate white matter. No evidence for a cute infarction. CEREBELLUM: No masses. No hemorrhage. No alteration of density. No evidence for acute infarction. EXTRA-AXIAL SPACES: No fluid collections. ORBITS AND GLOBE: No intra- or extraconal masses. Normal contour of globe without masses. CALVARIUM: No fracture. PARANASAL SINUSES: No fluid or mucosal thickening. SOFT TISSUES: No mass or hematoma. OTHER: No other significant finding. IMPRESSION: NO ACUTE INTRACRANIAL FINDINGS. EVIDENCE OF ACUTE STROKE: NO. TECHNICAL DOCUMENTATION: JOB ID: [id number] Quality ID # [id number]: Final reports with documentation of one or more dose reduction techniques (e.g., Au tomated exposure control, adjustment of the mA and/or kV according to patient size, use of iterative reconstruction technique) 2010 [employer]- All Rights Reserved Reading location - IP/workstation name: [email or web address]
[2019-06-20] MEDS ORDERED: GLUCAGON,HUMAN RECOMB 1 MG INJ IM PRN (17:58)
[2019-06-20] MEDS ORDERED: DEXTROSE 40% GEL 15 GM TUBE PO PRN ×2 (17:58)
[2019-06-20] MEDS ORDERED: DEXTROSE 50%-WATER 25 GM/50 ML DISP.SYRIN IV PRN ×2 (17:58)
--- NOTE | 2019-06-20 18:11 | PDOC H&P ---
History of Present Illness Admission Date/PCP: 06/20/19 17:32 NIKO TONG MD Patient complains of: Came in with complaints of wobbliness and short of breath History of Present Illness: RACHEL MULLEN is a 78 year old male Past Medical History Cardiac Medical History: Denies: Myocardial Infarction, Hypertension Pulmonary Medical History: Denies: Asthma Neurological Medical History: Denies: Seizures Endocrine Medical History: Reports: Diabetes Mellitus Type 2 Renal/ Medical History: Denies: End Stage Renal Disease - chronic kidney disease GI Medical History: Denies: Hepatitis, Hiatal Hernia Hematology: Reports: Anemia Denies: Sickle Cell Disease Past Surgical History Past Surgical History: Reports: Cholecystectomy, Orthopedic Surgery Denies: Pacemaker Social History Smoking Status: Former Smoker Frequency of Alcohol Use: None Hx Recreational Drug Use: No Hx Prescription Drug Abuse: No - Advance Directive Resuscitation Status: Do Not Resuscitate Family History Family History: Reviewed & Not Pertinent Parental Family History Reviewed: Yes - Family history of hypertension diabetes mellitus and heart disease Children Family History Reviewed: Yes Sibling(s) Family History Reviewed.: Yes Medication/Allergy Home Medications: Alfuzosin HCl [Uroxatral] 10 mg PO DAILY 08/05/15 Simvastatin [Zocor 10 mg Tablet] 10 mg PO QHS 08/05/15 Aspirin [Ecotrin 81 mg EC Tablet] 81 mg PO DAILY 11/29/18 Donepezil HCl [Aricept] 23 mg PO DAILY 11/29/18 Finasteride [Proscar] 5 mg PO DAILY 11/29/18 Tramadol HCl [Ultram] 50 mg PO BID 11/29/18 Allergies/Adverse Reactions: ciprofloxacin [From Cipro] Allergy (Unknown, Verified 12/04/18 07:54) RASH levofloxacin [From Levaquin] Allergy (Verified 12/04/18 07:54) RASH Quinolones Allergy (Verified 12/04/18 07:54) RASH Review of Systems Constitutional: ABSENT: fatigue, fever(s), headache(s), weakness Eyes: ABSENT: visual disturbances Nose, Mouth, and Throat: ABSENT: sore throat Cardiovascular: ABSENT: dyspnea on exertion, palpitations Respiratory: PRESENT: cough, dyspnea Gastrointestinal: ABSENT: abdominal pain, dysphagia, heartburn, hematemesis, hematochezia Integumentary: ABSENT: rash, wounds Neurological: PRESENT: dizziness. ABSENT: abnormal gait, abnormal speech, confusion, focal weakness, syncope Psychiatric: ABSENT: anxiety, depression, homidical ideation, suicidal ideation Physical Exam Vital Signs: Temp Pulse Resp BP Pulse Ox 98.9 F 13 118/68 96 06/20/19 14:34 06/20/19 16:58 06/20/19 15:01 06/20/19 16:58 Intake & Output 06/19/19 06/20/19 06/21/19 06:59 06:59 06:59 Weight 127.7 kg General appearance: PRESENT: mild distress, morbidly obese Head exam: PRESENT: atraumatic Eye exam: PRESENT: PERRLA Mouth exam: PRESENT: moist, neck supple, tongue midline Teeth exam: PRESENT: poor dentation Neck exam: ABSENT: carotid bruit, JVD, lymphadenopathy, thyromegaly Respiratory exam: PRESENT: decreased breath sounds Cardiovascular exam: PRESENT: RRR. ABSENT: diastolic murmur, rubs, systolic murmur Pulses: PRESENT: normal dorsalis pedis pul GI/Abdominal exam: PRESENT: normal bowel sounds, soft. ABSENT: distended, guarding, mass, organolmegaly, rebound, tenderness Rectal exam: PRESENT: deferred Extremities exam: PRESENT: full ROM, other - Right lower leg edema 1+ with chronic erythema most likely venous stasis. ABSENT: calf tenderness, clubbing, pedal edema Neurological exam: PRESENT: alert, awake, oriented to person, oriented to place, oriented to time, oriented to situation, CN II-XII grossly intact. ABSENT: mazin r sensory deficit Psychiatric exam: PRESENT: appropriate affect, normal mood. ABSENT: homicidal ideation, suicidal ideation Results Laboratory Results: 06/20/19 14:44 06/20/19 14:44 06/20/19 06/20/19 06/20/19 14:44 14:44 16:06 WBC 6.5 RBC 4.01 L Hgb 11.8 L Hct 35.8 L MCV 90 MCH 29.3 MCHC 32.8 RDW 15.3 H Plt Count 279 Seg Neutrophils % 69.6 Carbonic Acid 1.80 H HCO3/H2CO3 Ratio 15:1 ABG pH 7.28 L ABG pCO2 59.9 H ABG pO2 78.4 L ABG HCO3 27.6 H ABG O2 Saturation 93.8 L ABG Base Excess -0.1 FiO2 4 Sodium 139.4 Potassium 3.5 L Chloride 101 Carbon Dioxide 27 Anion Gap 11 BUN 50 H Creatinine 2.19 H Est GFR ( Amer) 35 L Glucose 100 Calcium 9.3 Total Bilirubin 0.5 AST 51 Alkaline Phosphatase 63 Total Protein 7.3 Albumin 3.8 Urine Color Urine Appearance Urine pH Ur Specific [place] Urine Protein Urine Glucose (UA) Urine Ketones Urine Blood Urine Nitrite Ur Leukocyte Esterase Urine WBC (Auto) Urine RBC (Auto) 06/20/19 16:06 WBC RBC Hgb Hct MCV MCH MCHC RDW Plt Count Seg Neutrophils % Carbonic Acid HCO3/H2CO3 Ratio ABG pH ABG pCO2 ABG pO2 ABG HCO3 ABG O2 Saturation ABG Base Excess FiO2 Sodium Potassium Chloride Carbon Dioxide Anion Gap BUN Creatinine Est GFR ( Amer) Glucose Calcium Total Bilirubin AST Alkaline Phosphatase Total Protein Albumin Urine Color YELLOW Urine Appearance CLEAR Urine pH 5.0 Ur Specific [place] 1.020 Urine Protein 100 H Urine Glucose (UA) NEGATIVE Urine Ketones NEGATIVE Urine Blood NEGATIVE Urine Nitrite NEGATIVE Ur Leukocyte Esterase NEGATIVE Urine WBC (Auto) 3 Urine RBC (Auto) 3 06/20/19 14:44 Troponin I < 0.012 NT-Pro-B Natriuret Pep 98 Impressions: Chest X-Ray 06/20/19 00:00 IMPRESSION: Probable atelectasis in the left costophrenic angle. No other significant findings. Head CT 06/20/19 15:20 IMPRESSION: NO ACUTE INTRACRANIAL FINDINGS. EVIDENCE OF ACUTE STROKE: NO. Assessment and Plan - Diagnosis (1) Acute and chronic respiratory failure with hypoxia Is this a current diagnosis for this admission?: Yes Plan: [id number]-ozoh-old male came to the emergency room with shortness of breath is noncompliant with his CPAP machine at home. In the emergency room found to be pulse ox is in the 80s comfortable full nebulizer treatments he was placed on BiPAP and medical consult was called for admission chest x-ray is negative for pneumonia. Plan to do the CT of the chest without contrast because of elevated creatinine started on IV Rocephin and Zithromax. GI prophylaxis DVT prophylaxis initiated. Blood cultures sputum cultures are requested. He is going to be admitted as inpatient and medical floor his CODE STATUS is DNR/DNI. (2) Diabetes mellitus type II, controlled Is this a current diagnosis for this admission?: No Plan: 06/20/2019-patient has history of type 2 diabetes mellitus latest blood sugar is 100 diet exercise weight loss lifestyle modifications are discussed with the patient. Dietary consult will be requested. (3) Anemia in chronic kidney disease Is this a current diagnosis for this admission?: No Plan: 06/20/2019-patient hemoglobin is 11.8 anemia of chronic disease most likely secondary to CKD. (4) Obesity (BMI 30-39.9) Is this a current diagnosis for this admission?: No Plan: 06/20/2019-diet exercise weight loss lifestyle modifications are discussed with the patient. (5) CKD (chronic kidney disease) stage 4, GFR 15-29 ml/min Is this a current diagnosis for this admission?: No Plan: 06/20/2019-creatinine was 2.19 today. Patient has a stage III kidney disease. Nonoliguric. (6) HTN (hypertension) Is this a current diagnosis for this admission?: No Plan: 06/20/2019-patient has history of hypertension started on a low cardiac low-carb diet. Complaints of medication was advised. Pressure is 118/68 stable. (7) Sleep apnea Is this a current diagnosis for this admission?: No Plan: 06/20/2019-patient has history of sleep apnea secondary to morbid obesity hypoventilation syndrome patient is noncompliant with CPAP at home. Patient was placed on CPAP on as-needed basis. (8) Pre-syncope Is this a current diagnosis for this admission?: No Plan: 06/20/2019-patient CT head was negative for acute pathology. Admitted with complaints of wobbliness. Patient mental status is back at baseline no focal neurological deficits. - Time Time Spent with patient: 25-34 minutes Medications reviewed and adjusted accordingly: Yes Anticipated discharge: Home
[2019-06-20 19:42] LABS: CREATINE KINASE MB 1.46 ng/mL (<4.55)
[2019-06-20 19:45] LABS: TROPONIN I < 0.012 ng/mL
[2019-06-20] MEDS: IPRATROPIUM/ALBUTEROL 0.5-2.5 MG/3 ML AMPUL NEB SCH (20:59)
[2019-06-20] MEDS: AZITHROMYCIN 500 MG in DEXTROSE 5%-WATER 250 ML IV SCH (21:37)
[2019-06-20] MEDS: FAMOTIDINE 20 MG TABLET PO SCH (21:38)
[2019-06-20] MEDS: INSULIN REG, HUMAN 100 UNIT/ML 3 ML VIAL (PYX) SUBCUT SCH (21:59)
--- NOTE | 2019-06-20 23:54 | RADIOLOGY REPORT (SQ) ---
CLINICAL HISTORY: shortness of breath COMPARISON: None. TECHNIQUE: CT CHEST WITHOUT IV CONTRAST on 06/20/2019 12:00 AM CDT This exam was performed according to our departmental dose-optimization program, which includes automated exposure control, adjustment of the mA and/or kV according to patient size and/or use of iterative reconstruction technique. FINDINGS: The heart is normal in size. There is no pericardial effusion. Intrathoracic lymph nodes are not enlarged. There is no pleural effusion, pleural thickening or pneumothorax. Central airways are patent. There is bibasilar atelectasis. Cholecystectomy was performed. Kidneys are severely atrophic. Gastric banding was performed. There are no acute osseous findings. No suspicious bony lesions. IMPRESSION: Mild bibasilar atelectasis.
[2019-06-21] MEDS: IPRATROPIUM/ALBUTEROL 0.5-2.5 MG/3 ML AMPUL NEB SCH ×2 (01:52→08:38)
[2019-06-21 02:39] LABS: CREATINE KINASE MB 1.47 ng/mL (<4.55)
[2019-06-21 02:40] LABS: TROPONIN I < 0.012 ng/mL
[2019-06-21 07:09] LABS: ABSOLUTE EOSINOPHILS # (AUTO) 0.4 10^3/uL (0.0-0.6); ABSOLUTE LYMPHOCYTES (AUTO) 1.3 10^3/uL (0.5-4.7); ABSOLUTE MONOCYTES (AUTO) 0.9 10^3/uL (0.1-1.4); ABSOLUTE NEUT (AUTO) 6.6 10^3/uL (1.7-8.2); BASOPHILS % (AUTO) 0.4 % (0-2); EOSINOPHILS % (AUTO) 4.1 % (0-6); HEMATOCRIT 36.3 % (37.9-51.0); HEMOGLOBIN 11.8 g/dL (13.5-17.0); LYMPHOCYTES % (AUTO) 14.2 % (13-45); MEAN CORPUSCULAR HEMOGLOBIN 29.2 pg (27.0-33.4); MEAN CORPUSCULAR HGB CONC 32.6 g/dL (32.0-36.0); MEAN CORPUSCULAR VOLUME 90 fl (80-97); MONOCYTES % (AUTO) 9.3 % (3-13); PLATELET COUNT 252 10^3/uL (150-450); RED BLOOD COUNT 4.05 10^6/uL (4.35-5.55); RED CELL DISTRIBUTION WIDTH 15.3 % (11.5-14.0); TOTAL CELLS COUNTED % (AUTO) 100 %; WHITE BLOOD COUNT 9.2 10^3/uL (4.0-10.5)
[2019-06-21 07:33] LABS: ALBUMIN 3.7 g/dL (3.5-5.0); ALKALINE PHOSPHATASE 59 U/L (38-126); ANION GAP 13 (5-19); ASPARTATE AMINO TRANSFERASE 29 U/L (17-59); BILIRUBIN,DIRECT 0.3 mg/dL (0.0-0.4); BILIRUBIN,TOTAL 0.4 mg/dL (0.2-1.3); BLOOD UREA NITROGEN 48 mg/dL (7-20); CALCIUM 9.3 mg/dL (8.4-10.2); CARBON DIOXIDE 25 mmol/L (22-30); CHLORIDE 101 mmol/L (98-107); CHOLESTEROL 130.22 mg/dL (0-200); CREATINE KINASE 110 U/L (55-170); GLUCOSE 77 mg/dL (75-110); POTASSIUM 3.9 mmol/L (3.6-5.0); TOTAL PROTEIN 6.8 g/dL (6.3-8.2); TRIGLYCERIDES 145 mg/dL (<150)
[2019-06-21 07:45] LABS: DIRECT LDL 73 mg/dL (<100)
[2019-06-21 07:46] LABS: CREATINE KINASE MB 1.61 ng/mL (<4.55); NT PRO BNP 70 pg/mL (<450)
[2019-06-21 07:54] LABS: TROPONIN I < 0.012 ng/mL
[2019-06-21] MEDS: LEVALBUTEROL HCL NEB 1.25 MG/3 ML AMPUL NEB SCH ×3 (09:06→20:46)
--- NOTE | 2019-06-21 09:27 | Progress Note Acknowledgement ---
Progress Note Acknowledgement Progess Note Acknowledgement: I, the undersigned member of the medical staff with appropriate privileges and with supervisory authority over [ PAC ], a dependent practice allied health professional, acknowledge that I have reviewed the progress notes entered on this patient, and in my professional judgment believe that the assessment made and/or any care evidenced was appropriate
--- NOTE | 2019-06-21 09:41 | PDOC PROGRESS REPORT ---
Subjective Progress Note for:: 06/21/19 Subjective:: 01/19/2019 patient was admitted to the hospital yesterday through the emergency room for acute on chronic respiratory distress. Patient came in with shortness of breath and weakness. Patient has a CPAP machine at home but is noncompliant because of patient's shortness of breath in the emergency room he was placed on BiPAP with improvement Chest x-ray was negative for pneumonia CT scan of the chest showed only bibasilar atelectasis. Patient was started on IV Rocephin and Zithromax, today is day 2. Other comorbidities include diabetes, anemia, kidney disease, obesity, hypertension, patient noncompliance. I have discussed patient's care today with respiratory therapy and we will make changes as needed Reason For Visit: ACUTE AND CHRONIC RESPIRATORY FAILURE Physical Exam Vital Signs: Temp Pulse Resp BP Pulse Ox 99.2 F 79 16 95/62 L 93 06/21/19 08:09 06/21/19 08:38 06/21/19 08:38 06/21/19 08:09 06/21/19 08:38 Intake & Output 06/20/19 06/21/19 06/22/19 06:59 06:59 06:59 Intake Total 250 Balance 250 Weight 127.8 kg General appearance: PRESENT: no acute distress, well-developed, well-nourished, other - Patient is sitting up in bed with nasal oxygen on complaining about the BiPAP machine, lack of sleep, and wanting to go home. Head exam: PRESENT: atraumatic, normocephalic Respiratory exam: PRESENT: decreased breath sounds - Right lower lobe Cardiovascular exam: PRESENT: RRR. ABSENT: diastolic murmur, rubs, systolic murmur Neurological exam: PRESENT: alert, awake, oriented to person, oriented to place, oriented to time, oriented to situation, CN II-XII grossly intact. ABSENT: motor sensory deficit Psychiatric exam: PRESENT: appropriate affect, normal mood, other - He admits to being noncompliant. Patient appears slightly agitated, although this may be his normal demeanor. ABSENT: homicidal ideation, suicidal ideation Results Laboratory Results: 06/21/19 06:53 06/21/19 06:53 06/20/19 06/20/19 06/20/19 14:44 14:44 16:06 WBC 6.5 RBC 4.01 L Hgb 11.8 L Hct 35.8 L MCV 90 MCH 29.3 MCHC 32.8 RDW 15.3 H Plt Count 279 Seg Neutrophils % 69.6 Carbonic Acid 1.80 H HCO3/H2CO3 Ratio 15:1 ABG pH 7.28 L ABG pCO2 59.9 H ABG pO2 78.4 L ABG HCO3 27.6 H ABG O2 Saturation 93.8 L ABG Base Excess -0.1 FiO2 4 Sodium 139.4 Potassium 3.5 L Chloride 101 Carbon Dioxide 27 Anion Gap 11 BUN 50 H Creatinine 2.19 H Est GFR ( Amer) 35 L Glucose 100 Calcium 9.3 Magnesium Total Bilirubin 0.5 AST 51 Alkaline Phosphatase 63 Total Protein 7.3 Albumin 3.8 Triglycerides Cholesterol LDL Cholesterol Direct VLDL Cholesterol HDL Cholesterol TSH Urine Color Urine Appearance Urine pH Ur Specific Magnet Urine Protein Urine Glucose (UA) Urine Ketones Urine Blood Urine Nitrite Ur Leukocyte Esterase Urine WBC (Auto) Urine RBC (Auto) 06/20/19 06/21/19 06/21/19 16:06 06:53 06:53 WBC 9.2 RBC 4.05 L Hgb 11.8 L Hct 36.3 L MCV 90 MCH 29.2 MCHC 32.6 RDW 15.3 H Plt Count 252 Seg Neutrophils % 72.0 Carbonic Acid HCO3/H2CO3 Ratio ABG pH ABG pCO2 ABG pO2 ABG HCO3 ABG O2 Saturation ABG Base Excess FiO2 Sodium 139.2 Potassium 3.9 Chloride 101 Carbon Dioxide 25 Anion Gap 13 BUN 48 H Creatinine 2.17 H Est GFR ( Amer) 36 L Glucose 77 Calcium 9.3 Magnesium 2.0 Total Bilirubin 0.4 AST 29 Alkaline Phosphatase 59 Total Protein 6.8 Albumin 3.7 Triglycerides 145 Cholesterol 130.22 LDL Cholesterol Direct 73 VLDL Cholesterol 29.0 HDL Cholesterol 35 L TSH Urine Color YELLOW Urine Appearance CLEAR Urine pH 5.0 Ur Specific Magnet 1.020 Urine Protein 100 H Urine Glucose (UA) NEGATIVE Urine Ketones NEGATIVE Urine Blood NEGATIVE Urine Nitrite NEGATIVE Ur Leukocyte Esterase NEGATIVE Urine WBC (Auto) 3 Urine RBC (Auto) 3 06/21/19 06:53 WBC RBC Hgb Hct MCV MCH MCHC RDW Plt Count Seg Neutrophils % Carbonic Acid HCO3/H2CO3 Ratio ABG pH ABG pCO2 ABG pO2 ABG HCO3 ABG O2 Saturation ABG Base Excess FiO2 Sodium Potassium Chloride Carbon Dioxide Anion Gap BUN Creatinine Est GFR ( Amer) Glucose Calcium Magnesium Total Bilirubin AST Alkaline Phosphatase Total Protein Albumin Triglycerides Cholesterol LDL Cholesterol Direct VLDL Cholesterol HDL Cholesterol TSH 0.87 Urine Color Urine Appearance Urine pH Ur Specific Magnet Urine Protein Urine Glucose (UA) Urine Ketones Urine Blood Urine Nitrite Ur Leukocyte Esterase Urine WBC (Auto) Urine RBC (Auto) 06/20/19 06/20/19 06/20/19 14:44 18:50 18:50 Creatine Kinase 67 CK-MB (CK-2) 1.46 Troponin I < 0.012 < 0.012 NT-Pro-B Natriuret Pep 98 06/21/19 06/21/19 06/21/19 01:00 01:00 01:53 Creatine Kinase 97 CK-MB (CK-2) Cancelled 1.47 Troponin I Cancelled < 0.012 NT-Pro-B Natriuret Pep 06/21/19 06/21/19 06:53 06:53 Creatine Kinase 110 CK-MB (CK-2) 1.61 Troponin I < 0.012 NT-Pro-B Natriuret Pep 70 Impressions: Chest CT 06/20/19 00:00 IMPRESSION: Mild bibasilar atelectasis. Chest X-Ray 06/20/19 00:00 IMPRESSION: Probable atelectasis in the left costophrenic angle. No other significant findings. Head CT 06/20/19 15:20 IMPRESSION: NO ACUTE INTRACRANIAL FINDINGS. EVIDENCE OF ACUTE STROKE: NO. Assessment and Plan - Diagnosis (1) COPD (chronic obstructive pulmonary disease) Is this a current diagnosis for this admission?: Yes Plan: Patient will be switched from albuterol to Xopenex because of agitation and tachycardia. Patient's sats today are from 98-93 on 4 L of nasal cannula. The patient presented to the emergency room his sats were reading 83-86. Patient states he is breathing easier today than on admission. We will try to set him up with a nebulizer machine at home. (2) HTN (hypertension) Is this a current diagnosis for this admission?: No Plan: 06/20/2019-patient has history of hypertension started on a low cardiac low-carb diet. Complaints of medication was advised. Pressure is 118/68 stable. 06/21/2019 in the emergency room on admission blood pressure was 153/140 this went down to as low as 79/62, he is gone back up to 132/68 last night and this morning he is 95/62 blood pressure medicines are none here in the hospital at the current time. At home he was on triamterene HCTZ ,Proscar. (3) Acute renal failure Is this a current diagnosis for this admission?: Yes Plan: In the emergency room his BUN was 50 creatinine 2.19 GFR 29. Today his BUN is 48 creatinine 2.17 GFR is 30 We will add gentle hydration today half normal saline at 100/h (4) Anemia in chronic kidney disease Is this a current diagnosis for this admission?: Yes Plan: 06/20/2019-patient hemoglobin is 11.8 anemia of chronic disease most likely sec ondary to CKD. 06/21/2019 H&H is stable at 11.8 and 36.3 (5) Diabetes mellitus type II, controlled Is this a current diagnosis for this admission?: Yes Plan: 06/20/2019-patient has history of type 2 diabetes mellitus latest blood sugar is 100 diet exercise weight loss lifestyle modifications are discussed with the patient. Dietary consult will be requested. 06/21/2019 patient glucose was 100 today his glucose is 77. Admission hemoglobin A1c was 8.7 and he is on sliding scale here in the hospital, no p.o.'s meds, at home he was on glimepiride 2 mg daily (6) Obesity (BMI 30-39.9) Is this a current diagnosis for this admission?: No Plan: 06/20/2019-diet exercise weight loss lifestyle modifications are discussed with the patient. 06/21/2019 weight on admission was 127 kg today it is 127 kg - Time Time Spent with patient: 25-34 minutes
[2019-06-21] MEDS: DOCUSATE SODIUM 100 MG/10 ML UDC PO SCH (09:48)
[2019-06-21] MEDS: ENOXAPARIN SODIUM INJ 40 MG/0.4 ML DISP.SYRIN SUBCUT SCH (09:49)
[2019-06-21] MEDS: FAMOTIDINE 20 MG TABLET PO SCH ×2 (09:50→21:27)
[2019-06-21] MEDS ORDERED: AZITHROMYCIN INJ 500 MG VIAL IV SCH (10:00)
[2019-06-21] MEDS: CEFTRIAXONE 2 GM/D5W RTU 2 GM/50 ML RTUPB IV SCH (10:05)
[2019-06-21] MEDS: 1/2 NORMAL SALINE 1,000 ML IV PRN (10:45)
[2019-06-21] MEDS: INSULIN REG, HUMAN 100 UNIT/ML 3 ML VIAL (PYX) SUBCUT SCH ×4 (11:19→21:04)
[2019-06-21] MEDS ORDERED: TRAMADOL HCL 50 MG TABLET PO PRN (17:56)
[2019-06-21] MEDS: GLIMEPIRIDE 1 MG TABLET PO SCH (18:20)
--- NOTE | 2019-06-21 19:08 | EKG REPORT ---
SEVERITY:- ABNORMAL ECG - SINUS RHYTHM NONSPECIFIC IVCD WITH LAD INFERIOR INFARCT, AGE INDETERMINATE BORDERLINE R WAVE PROGRESSION, ANTERIOR LEADS : Confirmed by: Nayeli Hernandez MD 21-Jun-2019 19:07:10
--- NOTE | 2019-06-21 19:08 | EKG REPORT ---
SEVERITY:- ABNORMAL ECG - SINUS RHYTHM NONSPECIFIC IVCD WITH LAD CONSIDER ANTERIOR INFARCT : Confirmed by: Nayeli Hernandez MD 21-Jun-2019 19:07:06
[2019-06-21] MEDS: AZITHROMYCIN 500 MG in DEXTROSE 5%-WATER 250 ML IV SCH (21:27)
[2019-06-21] MEDS ORDERED: SIMVASTATIN 10 MG TABLET PO SCH (22:00)
[2019-06-22] MEDS: LEVALBUTEROL HCL NEB 1.25 MG/3 ML AMPUL NEB SCH ×2 (02:12→07:52)
[2019-06-22] MEDS: INSULIN REG, HUMAN 100 UNIT/ML 3 ML VIAL (PYX) SUBCUT SCH (08:37)
[2019-06-22] MEDS: GLIMEPIRIDE 1 MG TABLET PO SCH (08:39)
[2019-06-22] MEDS: DOCUSATE SODIUM 100 MG/10 ML UDC PO SCH (09:27)
[2019-06-22] MEDS: CEFTRIAXONE 2 GM/D5W RTU 2 GM/50 ML RTUPB IV SCH (09:28)
[2019-06-22] MEDS: FAMOTIDINE 20 MG TABLET PO SCH (09:29)
[2019-06-22] MEDS: ENOXAPARIN SODIUM INJ 40 MG/0.4 ML DISP.SYRIN SUBCUT SCH (09:30)
[2019-06-22] MEDS ORDERED: TRIAMTERENE/HYDROCHLOROTHIAZID 75-50 MG TABLET PO SCH (10:00)
[2019-06-22] MEDS ORDERED: DONEPEZIL HCL 5 MG TABLET PO SCH (10:00)
[2019-06-22] MEDS: 1/2 NORMAL SALINE 1,000 ML IV PRN (10:33)
[2019-06-22 11:41] VITALS: BP 115/68
--- NOTE | 2019-06-23 16:45 | PDOC PROGRESS REPORT ---
Subjective Progress Note for:: 06/23/19 Subjective:: 06/21/2019 patient was admitted to the hospital yesterday through the emergency room for acute on chronic respiratory distress. Patient came in with shortness of breath and weakness. Patient has a CPAP machine at home but is noncompliant because of patient's shortness of breath in the emergency room he was placed on BiPAP with improvement Chest x-ray was negative for pneumonia CT scan of the chest showed only bibasilar atelectasis. Patient was started on IV Rocephin and Zithromax, today is day 2. Other comorbidities include diabetes, anemia, kidney disease, obesity, hypertension, patient noncompliance. I have discussed patient's care today with respiratory therapy and we will make changes as needed. 06/21/2018 she is asking to go home however he is not ready for this. Possibly tomorrow we will charge the patient Reason For Visit: ACUTE AND CHRONIC RESPIRATORY FAILURE Physical Exam Vital Signs: Temp Pulse Resp BP Pulse Ox 98.3 F 71 18 115/68 93 06/22/19 11:33 06/22/19 11:33 06/22/19 11:33 06/22/19 11:33 06/22/19 11:33 Intake & Output 06/22/19 06/23/19 06/24/19 06:59 06:59 06:59 Intake Total 2425 225 Balance 2425 225 Weight 126.2 kg General appearance: PRESENT: mild distress Respiratory exam: PRESENT: clear to auscultation chanelle, decreased breath sounds. ABSENT: rales, rhonchi, wheezes Cardiovascular exam: PRESENT: RRR. ABSENT: diastolic murmur, rubs, systolic murmur Neurological exam: PRESENT: alert, awake, oriented to person, oriented to place, oriented to time, oriented to situation, CN II-XII grossly intact. ABSENT: motor sensory deficit Psychiatric exam: PRESENT: anxious Results Laboratory Results: 06/21/19 06:53 06/21/19 06:53 06/21/19 15:12 Sputum Gram Stain - Final 06/21/19 15:12 Sputum Sputum Culture - Final C.albicans/C.dubliniensis Reduced Normal Catie 06/20/19 06/20/19 06/20/19 14:44 18:50 18:50 Creatine Kinase 67 CK-MB (CK-2) 1.46 Troponin I < 0.012 < 0.012 NT-Pro-B Natriuret Pep 98 06/21/19 06/21/19 06/21/19 01:00 01:00 01:53 Creatine Kinase 97 CK-MB (CK-2) Cancelled 1.47 Troponin I Cancelled < 0.012 NT-Pro-B Natriuret Pep 06/21/19 06/21/19 06:53 06:53 Creatine Kinase 110 CK-MB (CK-2) 1.61 Troponin I < 0.012 NT-Pro-B Natriuret Pep 70 Impressions: Chest CT 06/20/19 00:00 IMPRESSION: Mild bibasilar atelectasis. Chest X-Ray 06/20/19 00:00 IMPRESSION: Probable atelectasis in the left costophrenic angle. No other significant findings. Head CT 06/20/19 15:20 IMPRESSION: NO ACUTE INTRACRANIAL FINDINGS. EVIDENCE OF ACUTE STROKE: NO. Assessment and Plan - Diagnosis (1) COPD (chronic obstructive pulmonary disease) Is this a current diagnosis for this admission?: Yes Plan: Patient will be switched from albuterol to Xopenex because of agitation and ta chycardia. Patient's sats today are from 98-93 on 4 L of nasal cannula. The patient presented to the emergency room his sats were reading 83-86. Patient states he is breathing easier today than on admission. We will try to set him up with a nebulizer machine at home.. 06/22/2018 patient continues to slowly improve discharge home with a nebulizer machine and medications (2) HTN (hypertension) Is this a current diagnosis for this admission?: Yes Plan: 06/20/2019-patient has history of hypertension started on a low cardiac low-carb diet. Complaints of medication was advised. Pressure is 118/68 stable. 06/21/2019 in the emergency room on admission blood pressure was 153/140 this went down to as low as 79/62, he is gone back up to 132/68 last night and this morning he is 95/62 blood pressure medicines are none here in the hospital at the current time. At home he was on triamterene HCTZ ,Proscar. 06/22/2019 blood pressures are still well controlled, running approximately 117/98 (3) Acute renal failure Is this a current diagnosis for this admission?: Yes Plan: In the emergency room his BUN was 50 creatinine 2.19 GFR 29. Today his BUN is 48 creatinine 2.17 GFR is 30 We will add gentle hydration today half normal saline at 100/h 06/22/2019 patient continues to be hydrated her renal functions are stable (4) Anemia in chronic kidney disease Is this a current diagnosis for this admission?: Yes Plan: 06/20/2019-patient hemoglobin is 11.8 anemia of chronic disease most likely secondary to CKD. 06/21/2019 H&H is stable at 11.8 and 36.3 06/22/2019 H&H are stable no signs of worsening anemia (5) Diabetes mellitus type II, controlled Is this a current diagnosis for this admission?: Yes Plan: 06/20/2019-patient has history of type 2 diabetes mellitus latest blood sugar is 100 diet exercise weight loss lifestyle modifications are discussed with the patient. Dietary consult will be requested. 06/21/2019 patient glucose was 100 today his glucose is 77. Admission hemoglobin A1c was 8.7 and he is on sliding scale here in the hospital, no p.o.'s meds, at home he was on glimepiride 2 mg daily. 06/22/2019 glucose was 77 on admission it was 100. Fingersticks are running anywhere from 88-143 (6) Obesity (BMI 30-39.9) Is this a current diagnosis for this admission?: No Plan: 06/20/2019-diet exercise weight loss lifestyle modifications are discussed with the patient. 06/21/2019 weight on admission was 127 kg today it is 127 kg 06/22/2019 06/22/2019 is stable at 126.2 kg - Time Time Spent with patient: 25-34 minutes
== END 2019-06-22 11:57 | disposition home health service (06) | DRG 189 ==
LOC: ER 14:29 → EH 17:32 → 3N 20:32
PROVIDERS: ADMIT Internal Medicine; ATTEND Internal Medicine
DX: J96.21 Acute and chronic respiratory failure with hypoxia (principal); G93.41 Metabolic encephalopathy; E87.2 Acidosis; N17.9 Acute kidney failure, unspecified; J44.9 Chronic obstructive pulmonary disease, unspecified; Z66 Do not resuscitate; N18.3 Chronic kidney disease, stage 3 (moderate); D63.1 Anemia in chronic kidney disease; I12.9 Hypertensive chronic kidney disease with stage 1 through stage 4 chronic kidney disease, or unspecified chronic kidney disease; E11.22 Type 2 diabetes mellitus with diabetic chronic kidney disease; G47.33 Obstructive sleep apnea (adult) (pediatric); Z87.891 Personal history of nicotine dependence; Z91.19 Patient's noncompliance with other medical treatment and regimen
CPT/HCPCS: 36415; 70450; 71045; 71250; 80053; 80061; 81001; 82550; 82553; 82803; 82962; 83036; 83735; 83880; 84443; 84484; 85025; 87040; 87070; 87077; 87086; 87186; 87205; 93005; 93010; 94640; 94660; 99291; J0456; J0696; J1650; J3490; J7060; J7620

== ENCOUNTER → 2019-09-26 | Outpatient (CLI) | payer MEDICARE, OTHER ==
[2019-09-26 10:11] LABS: HEMATOCRIT 36.4 % (37.9-51.0); HEMOGLOBIN 11.9 g/dL (13.5-17.0); MEAN CORPUSCULAR HEMOGLOBIN 29.1 pg (27.0-33.4); MEAN CORPUSCULAR HGB CONC 32.6 g/dL (32.0-36.0); MEAN CORPUSCULAR VOLUME 89 fl (80-97); PLATELET COUNT 265 10^3/uL (150-450); RED BLOOD COUNT 4.08 10^6/uL (4.35-5.55); RED CELL DISTRIBUTION WIDTH 14.4 % (11.5-14.0); WHITE BLOOD COUNT 11.1 10^3/uL (4.0-10.5)
[2019-09-26 10:17] LABS: APPEARANCE,URINE CLOUDY; BILIRUBIN,URINE NEGATIVE (NEGATIVE); COLOR,URINE YELLOW; GLUCOSE, URINE NEGATIVE (NEGATIVE); KETONES,URINE NEGATIVE (NEGATIVE); LEUKOCYTE ESTERASE,URINE LARGE (NEGATIVE); NITRITE,URINE POSITIVE (NEGATIVE); PROTEIN,URINE 100 mg/dL (NEGATIVE); URINE SPECIFIC GRAVITY 1.013; UROBILINOGEN,URINE NEGATIVE mg/dL (<2.0)
[2019-09-26 10:36] LABS: ANION GAP 10 (5-19); BLOOD UREA NITROGEN 45 mg/dL (7-20); CALCIUM 9.1 mg/dL (8.4-10.2); CARBON DIOXIDE 25 mmol/L (22-30); CHLORIDE 108 mmol/L (98-107); GLUCOSE 138 mg/dL (75-110)
== END ==
LOC: OD 09:01
PROVIDERS: ATTEND Internal Medicine Nephrology
DX: E11.22 Type 2 diabetes mellitus with diabetic chronic kidney disease (principal); I12.9 Hypertensive chronic kidney disease with stage 1 through stage 4 chronic kidney disease, or unspecified chronic kidney disease; N18.3 Chronic kidney disease, stage 3 (moderate); E66.9 Obesity, unspecified
CPT/HCPCS: 36415; 80048; 81001; 82533; 85027

== ENCOUNTER → 2020-11-23 | Outpatient (CLI) | payer MEDICARE, OTHER ==
--- NOTE | 2020-11-23 13:16 | RADIOLOGY REPORT (SQ) ---
EXAM DESCRIPTION: BARIUM SWALLOW ESOPHAGUS IMAGES COMPLETED DATE/TIME: 11/23/2020 9:49 am REASON FOR STUDY: (R13.10)DYSPHAGIA, UNSPECIFIED R13.10 DYSPHAGIA, UNSPECIFIED COMPARISON: None. TECHNIQUE: Under fluoroscopic guidance, patient ingested thin barium. Fluoroscopic spot images and r outine radiographic images acquired and stored on PACS. 12 MM BARIUM TABLET GIVEN: No LIMITATIONS: Patient unable to stand, therefore images obtained in supine position, with single cont rast technique. FLUOROSCOPY TIME: 1.0 minutes 6 images saved to PACS. FINDINGS: NEUROMUSCULAR COORDINATION OF SWALLOW: Normal. No aspiration. ESOPHAGEAL MOTILITY: Mild tertiary contractions with mild esophageal dysmotility. ESOPHAGEAL MUCOSA: Normal mucosa without masses or ulceration. GASTRO-ESOPHAGEAL JUNCTION: No hiatal hernia or reflux. NON-GI TRACT STRUCTURES: No significant finding. OTHER: Patient history of gastric banding, without abnormality identified. IMPRESSION: MILD ESOPHAGEAL DYSMOTILITY. OTHERWISE UNREMARKABLE STUDY. COMMENT: NONE Quality ID [id number]: Final reports for procedures using fluoroscopy that document radiation exposure shana radha, or exposure time and number of fluorographic images (if radiation exposure indices are not avail able) TECHNICAL DOCUMENTATION: JOB ID: [id number] 2010 [employer]- All Rights Reserved Reading location - IP/workstation name: [email or web address]
== END ==
LOC: RAD 08:45
PROVIDERS: ATTEND Specialist
DX: R13.10 Dysphagia, unspecified (principal)
CPT/HCPCS: 74220